=== PATIENT | female | born 1940 | race Caucasian/White ===

== ENCOUNTER → 2021-03-02 | Outpatient (CLI) | payer OTHER ==
[~2021-03-02] VITALS: Ht 157.5 cm; Wt 53.1 kg
[~2021-03-02] MED LIST: CLEOCIN40 GM VAG; COZAAR 25 MG TA25 M2 PO; METFORMIN HCL500 M3 PO; MULTI VITAMIN1 EACH PO; STIOLTO RESPIMAT4 GM INH; SYNTHROID112 MC1 PO; TRIAMCINOLONE A15 G1 TOP; VENTOLIN HFA INH8 GM INH
--- NOTE | 2021-03-04 13:08 | PATH ---
[facility] [address] [place] [address] PATHOLOGY RPT PROCEDURE Name: LUCRECIA CUNHAITA Room #: [facility].#: [id number] Admission: 03/02/21 Date of : 40 Discharge: Report #: [id number] Path Case #: [id number] [facility] Accession Number: [id number] . 01 Material submitted: . colon - ASCENDING COLON POLYP. Modifiers: ascending . 01 Clinical history: . OSTOMY, HERNIA X3, FISTULA COLON POLYPS . 02 Diagnosis: Polyp, ascending colon polyp, endoscopic biopsy: - Tubular adenoma. - Negative for high-grade dysplasia. (IUV:pit; 03/04/2021) QTP 03/04/2021 0907 Local . 02 Electronically signed: . Roxanne Kaplan MD, Pathologist NPI- [id number] . 01 Gross description: . The specimen is received in formalin, labeled "[place], Lucrecia, ascending colon polyp" and consists of 2 stein irregular tissue aggregating 1.2 x 0.8 x 0.4 cm. The largest tissue is serially sectioned. The specimen is submitted entirely in A1.([place]; 03/02/2021) DKA/DKA 03/02/2021 1648 Local . 02 Pathologist provided ICD-10: D12.2 . 02 CPT . 357190 Specimen Comment: A courtesy copy of this report has been sent to [phone], [phone] Specimen Comment: [id number] Specimen Comment: Report sent to / DR ZEE Performed at: [address], [place] [id number] MD Ray Feldman MD Phone: [phone] Performed at: [address] [id number] MD Roxanne Kaplan MD Phone: [phone]
== END | disposition home or self-care (01) ==
LOC: GI 09:41
PROVIDERS: ATTEND Internal Medicine Gastroenterology
DX: Z12.11 Encounter for screening for malignant neoplasm of colon (principal); D12.2 Benign neoplasm of ascending colon; I10 Essential (primary) hypertension; E11.9 Type 2 diabetes mellitus without complications; J43.9 Emphysema, unspecified; F17.210 Nicotine dependence, cigarettes, uncomplicated; Z98.0 Intestinal bypass and anastomosis status; Z98.890 Other specified postprocedural states; Z79.899 Other long term (current) drug therapy; Z90.49 Acquired absence of other specified parts of digestive tract; Z90.710 Acquired absence of both cervix and uterus
CPT/HCPCS: 62110; 62900